=== PATIENT | female | born 1965 | race Hispanic/Latino ===

== ENCOUNTER 2018-05-22 07:07 | Outpatient (CLI) | payer BC | END 2018-05-22 07:08 | disposition home or self-care (01) | LOC: BICULT 07:07 | PROVIDERS: ATTEND Family Medicine | DX: R79.89 Other specified abnormal findings of blood chemistry (principal); K76.0 Fatty (change of) liver, not elsewhere classified | CPT/HCPCS: 76700 ==

== ENCOUNTER 2018-05-28 08:10 | Outpatient (CLI) | payer BC | END 2018-05-28 08:11 | disposition home or self-care (01) | LOC: BICMAMMO 08:10 | PROVIDERS: ATTEND Family Medicine | DX: Z12.31 Encounter for screening mammogram for malignant neoplasm of breast (principal) | CPT/HCPCS: 77063; 77067 ==

== ENCOUNTER 2019-10-22 14:49 | Outpatient (CLI) | payer BC ==
--- NOTE | 2019-10-22 15:32 | BD ---
EXAM: DEXA bone density examination HISTORY: 54-year-old postmenopausal female for screening COMPARISON: None FINDINGS: L1--bone mineral density 1.161 g/sq cm; T score 1.6 L2--bone mineral density 1.189 g/sq cm; T score 1.5 L3--bone mineral density 1.207 g/sq cm; T score 1.1 L4--bone mineral density 1.216 g/sq cm; T score 1.4 Total L1-L4--bone mineral density 1.195 g/sq cm; T score 1.3 Left femoral neck--bone mineral density0.877; T score 0.3 Total proximal left femur--bone mineral density 1.246; T score 2.5 IMPRESSION: Normal bone density
--- NOTE | 2019-10-22 16:31 | MMO ---
Bilateral MAMMO Bilat Screen [facility]. CLINICAL HISTORY: Patient is 54 years old and is seen for screening. The patient has no family history of breast cancer. The patient has no personal history of cancer. VIEWS: The views performed were: bilateral craniocaudal with tomosynthesis and bilateral mediolateral oblique with tomosynthesis. FILMS COMPARED: The present examination has been compared to prior imaging studies performed at [facility] on 01/22/2011, 04/25/2015, 04/25/2016 and 05/28/2018. This study has been interpreted with the assistance of computer-aided detection. MAMMOGRAM FINDINGS: The breasts are almost entirely fat. There are no suspicious masses, suspicious calcifications, or new areas of architectural distortion. IMPRESSION: THERE IS NO MAMMOGRAPHIC EVIDENCE OF MALIGNANCY. A ROUTINE FOLLOW-UP MAMMOGRAM IN 1 YEAR IS RECOMMENDED. THE RESULTS OF THIS EXAM WERE SENT TO THE PATIENT. ACR BI-RADS Category 1 - Negative MAMMOGRAPHY NOTE: 1. A negative mammogram report should not delay a biopsy if a dominant of clinically suspicious mass is present. 2. Approximately 10% to 15% of breast cancers are not detected by mammography. 3. Adenosis and dense breasts may obscure an underlying neoplasm. Reported by: HENRIQUE FARNCIS MD Electonically Signed: [id number]
== END 2019-10-22 14:50 | disposition home or self-care (01) ==
LOC: BICMAMMO 14:49
PROVIDERS: ATTEND Family Medicine
DX: Z12.31 Encounter for screening mammogram for malignant neoplasm of breast (principal); Z13.820 Encounter for screening for osteoporosis
CPT/HCPCS: 77063; 77067; 77080

== ENCOUNTER 2020-06-09 12:39 | Outpatient (CLI) | payer BC ==
[~2020-06-09 12:39] MED LIST: Iopamidol-370 76% 500 ML 1 ML ONE
--- NOTE | 2020-06-09 13:36 | CT ---
CT ABDOMEN AND PELVIS WITH ORAL AND IV CONTRAST: 06/09/20 HISTORY: Generalized abdominal pain. FINDINGS: The lung bases are clear. The liver, spleen, pancreas, adrenal gland and kidneys are normal. No calci fied gallstones are seen. No free air, free fluid or lymphadenopathy is noted in the abdomen or pelvi s. The small bowel loops are not abnormally dilated. There is colonic diverticulosis without divertic ulitis. Uterus is present. The aorta is of normal caliber. There are mild degenerative changes in the spine. IMPRESSION: Colonic diverticulosis without diverticulitis. POS: AH
== END 2020-06-09 12:40 | disposition home or self-care (01) ==
LOC: BICCT 12:39
PROVIDERS: ATTEND Physician Assistant Medical
DX: R10.84 Generalized abdominal pain (principal); K57.30 Diverticulosis of large intestine without perforation or abscess without bleeding
CPT/HCPCS: 74177; Q9967

== ENCOUNTER 2021-05-01 07:46 | Outpatient (CLI) | payer BC | END 2021-05-01 07:47 | disposition home or self-care (01) | LOC: BICMAMMO 07:46 | PROVIDERS: ATTEND Family Medicine | DX: Z12.31 Encounter for screening mammogram for malignant neoplasm of breast (principal) | CPT/HCPCS: 77063; 77067 ==

== ENCOUNTER 2021-05-08 09:25 | Outpatient (CLI) | payer BC | END 2021-05-08 09:26 | disposition home or self-care (01) | LOC: BICMAMMO 09:25 | PROVIDERS: ATTEND Family Medicine | DX: R92.2 Inconclusive mammogram (principal); N63.25 Unspecified lump in the left breast, overlapping quadrants | CPT/HCPCS: G0279 ==

== ENCOUNTER 2021-11-13 08:16 | Outpatient (CLI) | payer BC | END 2021-11-13 08:17 | disposition home or self-care (01) | LOC: BICMAMMO 08:16 | PROVIDERS: ATTEND Family Medicine | DX: N63.20 Unspecified lump in the left breast, unspecified quadrant (principal); R92.8 Other abnormal and inconclusive findings on diagnostic imaging of breast | CPT/HCPCS: G0279 ==

== ENCOUNTER 2022-05-07 09:28 | Outpatient (CLI) | payer BC | END 2022-05-07 09:29 | disposition home or self-care (01) | LOC: BICMAMMO 09:28 | PROVIDERS: ATTEND Family Medicine | DX: R92.8 Other abnormal and inconclusive findings on diagnostic imaging of breast (principal); N63.0 Unspecified lump in unspecified breast | CPT/HCPCS: 77066; G0279 ==

== ENCOUNTER 2023-06-16 08:41 | Outpatient (CLI) | payer BC | END 2023-06-16 08:42 | disposition home or self-care (01) | LOC: BICMAMMO 08:41 | PROVIDERS: ATTEND Family Medicine | DX: Z12.31 Encounter for screening mammogram for malignant neoplasm of breast (principal) | CPT/HCPCS: 77063; 77067 ==